=== PATIENT | female | born 1990 | race Caucasian/White ===

== ENCOUNTER 2018-04-04 17:26 | Emergency (ER) | payer OTHER ==
[~2018-04-04] VITALS: Ht 160 cm; Wt 127.0 kg
[2018-04-04] MEDS ORDERED: ALPRAZOLAM0.25 MG PO (18:16)
[2018-04-04] MEDS ORDERED: ONDANSETRON ODT8 MG PO (18:17)
[2018-04-04] MEDS ORDERED: VENTOLIN HFA18 GM INH (18:17)
[2018-04-04] MEDS ORDERED: FLAGYL500 MG PO (19:07)
[2018-04-04] MEDS ORDERED: PROMETHAZINE HC25 M1 PO (19:07)
== END 2018-04-04 19:38 | disposition home or self-care (01) ==
LOC: ED 17:26
DX: K52.9 Noninfective gastroenteritis and colitis, unspecified (principal); Z87.891 Personal history of nicotine dependence; Z79.899 Other long term (current) drug therapy
CPT/HCPCS: 80053; 81001; 85379; 96361; 96374; 99283; J2550; J7030

== ENCOUNTER 2020-05-18 14:54 | Emergency (ER) | payer OTHER ==
[~2020-05-18] VITALS: Ht 160 cm; Wt 127.0 kg
--- OUTSIDE RECORDS SUMMARY | ~2020-05-18 | XMS | Encounter Summary ---
Demographics + + + | Address | [address] | | | [place] [address] | + + + | Home Phone | | + + + | Preferred Language | Unknown | + + + | Marital Status | Single | + + + | Gnosticism Affiliation | 1027 | + + + | Race | Unknown | + + + | Ethnic Group | Unknown | + + + Author + + + | Author | [facility] | | | and [place] | + + + | Organization | [facility] | | | and [place] | + + + | Address | Unknown | + + + | Phone | Unavailable | + + + Care Team Providers + +------+ + | Care Cloth Laminating Supervisor Name | Role | Phone | + +------+ + PCP | Unavailable | + +------+ + Encounter Details +--------+ + + + + | Date | Type | Department | Care Team | Description | +--------+ + + + + | 06/24/ | Hospital | [facility] | Harmeet Lopez MD | | | 2009 | Encounter | CONVERSION [address] | [address] | | | | | [address] | [address] [place], | | | | | [place], [place] | [place] [address] | | | | | [address] | [phone] | | | | | [phone] | | | +--------+ + + + + Social History + +-------+ +--------+------+ | Tobacco Use | Types | Packs/Day | Years | Date | | | | | Used | | + +-------+ +--------+------+ | Never Assessed | | | | | + +-------+ +--------+------+ + + + | Sex Assigned at | Date Recorded | | | | + + + | Not on file | | + + + documented as of this encounter Plan of Treatment Not on filedocumented as of this encounter Visit Diagnoses Not on filedocumented in this encounter"
--- OUTSIDE RECORDS SUMMARY | ~2020-05-18 | XMS | Clinical Summary ---
Demographics + + + | Address | [address] | | | [place] [address] | + + + | Home Phone | | + + + | Preferred Language | Unknown | + + + | Marital Status | Single | + + + | Judaism Affiliation | 1027 | + + + | Race | Unknown | + + + | Ethnic Group | Unknown | + + + Author + + + | Author | [facility] | | | and [place] | + + + | Organization | [facility] | | | and [place] | + + + | Address | Unknown | + + + | Phone | Unavailable | + + + Care Team Providers + +------+ + | Care Laborer Driver Name | Role | Phone | + +------+ + PCP | Unavailable | + +------+ + Allergies Not on File Medications Not on file Active Problems Not on file Family History + + +------+ + | Medical History | Relation | Name | Comments | + + +------+ + | High cholesterol | Father | | | + + +------+ + | Hypertension | Father | | | + + +------+ + | Dementia | Maternal | | | | | Grandmoth | | | | | er | | | + + +------+ + | Diabetes, NIDDM | Maternal | | | | | Grandmoth | | | | | er | | | + + +------+ + | Hypertension | Maternal | | | | | Grandmoth | | | | | er | | | + + +------+ + | Cancer | Mother | | ovarian | + + +------+ + | Ovarian cancer | Other | | | + + +------+ + | Cancer | Paternal | | colon | | | Grandfath | | | | | er | | | + + +------+ + | Diabetes, NIDDM | Paternal | | | | | Grandfath | | | | | er | | | + + +------+ + | Hypertension | Paternal | | | | | Grandfath | | | | | er | | | + + +------+ + | Cancer | Paternal | | colon | | | Grandmoth | | | | | er | | | + + +------+ + + +------+ + + | Relation | Name | Status | Comments | + +------+ + + | Father | | Alive | | + +------+ + + | Father | | | | + +------+ + + | Maternal Grandfather | | | | + +------+ + + | Maternal Grandmother | | Alive | | + +------+ + + | Maternal Grandmother | | | | + +------+ + + | Mother | | Alive | | + +------+ + + | Mother | | | | + +------+ + + | Other | | | | + +------+ + + | Paternal Grandfather | | | | + +------+ + + | Paternal Grandfather | | | | + +------+ + + | Paternal Grandmother | | | | + +------+ + + | Paternal Grandmother | | | | + +------+ + + Social History + +-------+ +--------+------+ | Tobacco Use | Types | Packs/Day | Years | Date | | | | | Used | | + +-------+ +--------+------+ | Never Smoker | | | | | + +-------+ +--------+------+ + + + | Sex Assigned at | Date Recorded | | | | + + + | Not on file | | + + + Last Filed Vital Signs Not on file Plan of Treatment + + + + + | Health Maintenance | Due Date | Last | Comments | | | | Done | | + + + + + | Vaccine: | | | | | Dtap/Tdap/Td (1 - | 8 | | | | Tdap) | | | | + + + + + | Cervical Cancer | | 01/28/20 | | | Screening (Pap) | 9 | 13 | | + + + + + | Vaccine: Influenza | | | | | (#1) | 0 | | | + + + + + Results Not on filefrom Last 3 Months"
--- OUTSIDE RECORDS SUMMARY | ~2020-05-18 | XMS | Encounter Summary ---
Demographics + + + | Address | [address] | | | [place] [address] | + + + | Home Phone | | + + + | Preferred Language | Unknown | + + + | Marital Status | Single | + + + | Alevism Affiliation | 1027 | + + + | Race | Unknown | + + + | Ethnic Group | Unknown | + + + Author + + + | Author | [facility] | | | and [place] | + + + | Organization | [facility] | | | and [place] | + + + | Address | Unknown | + + + | Phone | Unavailable | + + + Care Team Providers + +------+ + | Care Molasses Feed Mixer Name | Role | Phone | + +------+ + PCP | Unavailable | + +------+ + Encounter Details +--------+ + + + + | Date | Type | Department | Care Team | Description | +--------+ + + + + | 07/28/ | Emergency | [facility] | Ajay Montaño DO | Abdominal pain, | | 2009 | | MEDICAL CENTER | [address] | unspecified site | | | | EMERGENCY CENTER | [address], | | | | | [address] | [place] [address] | | | | | [place], [place] | [phone] | | | | | [address] | | | | | | [phone] | | | +--------+ + + + [...] filedocumented as of this encounter Visit Diagnoses + + | Diagnosis | + + | Abdominal pain, unspecified site | + + documented in this encounter"
--- OUTSIDE RECORDS SUMMARY | ~2020-05-18 | XMS | Encounter Summary ---
Demographics + + + | Address | [address] | | | [place] [address] | + + + | Home Phone | | + + + | Preferred Language | Unknown | + + + | Marital Status | Single | + + + | Tenriism Affiliation | 1027 | + + + | Race | Unknown | + + + | Ethnic Group | Unknown | + + + Author + + + | Author | [facility] | | | and [place] | + + + | Organization | [facility] | | | and [place] | + + + | Address | Unknown | + + + | Phone | Unavailable | + + + Care Team Providers + +------+ + | Care Material Handler Name | Role | Phone | + +------+ + PCP | Unavailable | + +------+ + Encounter Details +--------+ + + + + | Date | Type | Department | Care Team | Description | +--------+ + + + + | 07/28/ | Orders Only | [facility] | Ajay Montaño DO | | | 2009 | | MEDICAL CENTER | [address] | | | | | EMERGENCY CENTER | [address] [place], | | | | | [address] | [place] [address] | | | | | [place], [place] | [phone] | | | | | [address] | | | | | | [phone] | | | +--------+ + + + [...] Not on filedocumented as of this encounter Procedures + +--------+ + + + | Procedure Name | Priori | Date/Time | Associated Diagnosis | Comments | | | ty | | | | + +--------+ + + + | CULTURE, URINE | Routin | 07/28/2010 | | Results for this | | | e | 8:45 AM | | procedure are in the | | | | PDT | | results section. | + +--------+ + + + documented in this encounter Results Culture, Urine (07/28/2010 8:45 AM PDT) + + | Specimen | + + | | + + + + + | Narrative | Performed At | + + + | Specimen Description CLEAN CATCH URINE CULTURE | EXTERNAL LAB | | >100,000 CFU/ML ESCHERICHIA | | | COLI 10,000 TO | | | 50,000 CFU/ML MIXED GRAM POSITIVE LAYA NO SUSCEPTIBILITY TO FOLLOW | | | REPORT STATUS 07/29/2010 FINAL | | | Organism ESCHERICHIA COLI | | | >100,000 CFU/ML ESCHERICHIA COLI O | | | MARIELA Ampicillin | | | SUSCEPTIBLESensitive Ampicillin + Sulbactam | | | SUSCEPTIBLESensitive Cefazolin | | | SUSCEPTIBLESensitive Ceftazidime | | | SUSCEPTIBLESensitive Ceftriaxone | | | SUSCEPTIBLESensitive Ciprofloxacin | | | SUSCEPTIBLESensitive Gentamicin | | | SUSCEPTIBLESensitive Piperacillin + Tazobactam | | | SUSCEPTIBLESensitive SXT | | | (Trimethoprim/Sulfamethoxazole)SUSCEPTIBLESensitive Nitrofurantoin | | | SUSCEPTIBLESensitive Levofloxacin | | | SUSCEPTIBLESensitive | | + + + + +---------+ + + | Performing | Address | City/State/Zipcode | Phone Number | | Organization | | | | + +---------+ + + | EXTERNAL LAB | | | | + +---------+ + + documented in this encounter Visit Diagnoses Not on filedocumented in this encounter"
--- OUTSIDE RECORDS SUMMARY | ~2020-05-18 | XMS | Encounter Summary ---
Demographics + + + | Address | [address] | | | [place] [address] | + + + | Home Phone | | + + + | Preferred Language | Unknown | + + + | Marital Status | Single | + + + | Zoroastrian Affiliation | 1027 | + + + | Race | Unknown | + + + | Ethnic Group | Unknown | + + + Author + + + | Author | [facility] | | | and [place] | + + + | Organization | [facility] | | | and [place] | + + + | Address | Unknown | + + + | Phone | Unavailable | + + + Care Team Providers + +------+ + | Care Instructor Tap Dancing Name | Role | Phone | + +------+ + PCP | Unavailable | + +------+ + Encounter Details +--------+ + + + + | Date | Type | Department | Care Team | Description | +--------+ + + + + | 01/15/ | Hospital | [facility] | Luiz Krueger | Mild or unspecified | | 2010 - | Encounter | MEDICAL CENTER LABOR | MD [address] | pre-eclampsia, with | | | | [address] | [address] | delivery | | 01/17/ | | [address] | [place] [address] | | | 2010 | | [place], [place] | [phone] | | | | | [address] | | | | | | [phone] | | | +--------+ + + + [...] + | Diagnosis | + + | Mild or unspecified pre-eclampsia, with delivery | + + documented in this encounter"
--- OUTSIDE RECORDS SUMMARY | ~2020-05-18 | XMS | Encounter Summary ---
Demographics + + + | Address | [address] | | | [place] [address] | + + + | Home Phone | | + + + | Preferred Language | Unknown | + + + | Marital Status | Single | + + + | Advent Affiliation | 1027 | + + + | Race | Unknown | + + + | Ethnic Group | Unknown | + + + Author + + + | Author | [facility] | | | and [place] | + + + | Organization | [facility] | | | and [place] | + + + | Address | Unknown | + + + | Phone | Unavailable | + + + Care Team Providers + +------+ + | Care Cheese Specialist Name | Role | Phone | + +------+ + PCP | Unavailable | + +------+ + Encounter Details +--------+ + + + + | Date | Type | Department | Care Team | Description | +--------+ + + + + | 12/16/ | Hospital | [facility] | Harmeet Lopez MD | Polyhydramnios, | | 2010 | Encounter | [address] | [address] | antepartum | | | | [address] | [address] [place], | complication | | | | [place], [place] | [place] [address] | | | | | [address] | [phone] | | | | | [phone] | | | +--------+ + + + [...] | + +--------+ + + + | US BIOPHYSICAL | Routin | 12/16/2010 | | Results for this | | PROFILE WO NON | e | 4:30 PM | | procedure are in the | | STRESS | | PST | | results section. | + +--------+ + + + documented in this encounter Results US BPP wo Non Stress (12/16/2010 4:30 PM PST) + + | Specimen | + + | | + + + + + | Narrative | Performed At | + + + | [facility] [address] Ph: | | | Patient Name: JOSE MARTIN CASTILLO Date of : | | | 1990 Medical Record: [id number] Account: [id number] | | | Exam Date/Time: 12/16/2010 16:34 Ordering | | | Physician: HARMEET LOPEZ MD Order Detail: [id number] Exam Description: | | | APW OB BPP W/O NST | | | | | | Indication: BPP. History: Age: 20 years. | | | : 1 Para: 0. Dating: Stated EDC : | | | EDC: 01/22/2011 | | | [place] by | | | stated EDC :34w5d Anatomy Scan: Beaver | | | gestation. heart activity: present. presentation: | | | cephalic. Cord: not examined. Placenta: anterior. Summary of | | | Ultrasound Findings: Transabdominal US. U/S machine: [employer] E8 - | | | [facility] [employer] [facility]. U/S view: adequate. | | | Wellbeing Assessment: Amniotic fluid: | | | normal. GABO: 10.7 cm. MVP: 5.9 cm. Q1: 3.1 cm. Q2: 5.9 cm. Q3: 1.7 | | | cm. Biophysical Profile: body movements: abnormal (0), | | | tone: normal (2), breathing movements: normal (2), Amniotic | | | fluid volume: normal (2). Score 6 / 8. Summary: A biophysical | | | profile is performed today with a score of 6/8, GBM was not seen. | | | Report Summary: Impression: A biophysical | | | profile is performed today with a score of 6/8. As demonstrated | | | on cine loop, GBM limited. Machine froze during exam and machine | | | had to be shut down and re-booted. This took 5 minutes and delayed | | | exam. The patient received thermal prints. Electronically | | | signed by Harmeet Lopez MD on 12/16/2010 17:07 | | + + + + + | Procedure Note | + + | Nicholas Gregory Conversion - 06/10/2019 2:53 PM PDT | | [facility] | | [facility] [address] | | | | | | Patient Name: JOSE MARTIN CASTILLO | | Date of : 1990 | | Medical Record: [id number] | | Account: [id number] | | | | | | Exam Date/Time: 12/16/2010 16:34 | | Ordering Physician: HARMEET LOPEZ MD | | Order Detail: [id number] | | Exam Description: APW OB BPP W/O NST | | | | Indication: BPP. | | | | History: Age: 20 years. : 1 Para: 0. | | | | Dating: | | Stated EDC : EDC: 01/22/2011 | | GA by stated EDC :34w5d | | | | Anatomy Scan: | | Beaver gestation. | | heart activity: present. | | presentation: cephalic. | | Cord: not examined. | | Placenta: anterior. | | | | Summary of Ultrasound Findings: | | Transabdominal US. U/S machine: [employer] E8 - [employer] | | for Women. U/S view: adequate. | | | | | | Wellbeing Assessment: | | Amniotic fluid: normal. GABO: 10.7 cm. MVP: 5.9 cm. Q1: 3.1 cm. Q2: | | 5.9 cm. Q3: 1.7 cm. | | Biophysical Profile: body movements: abnormal (0), tone: | | normal (2), breathing movements: normal (2), Amniotic fluid | | volume: normal (2). Score 6 / 8. | | | | Summary: A biophysical profile is performed today with a score of | | 6/8, GBM was not seen. | | | | | | Report Summary: | | Impression: A biophysical profile is performed today with a score of | | 6/8. | | | | As demonstrated on cine loop, GBM limited. | | | | Machine froze during exam and machine had to be shut down and | | re-booted. This took 5 minutes and delayed exam. | | | | The patient received thermal prints. | | | | | + + documented in this encounter Visit Diagnoses + + | Diagnosis | + + | Polyhydramnios, antepartum complication | + + documented in this encounter"
--- OUTSIDE RECORDS SUMMARY | ~2020-05-18 | XMS | Encounter Summary ---
Demographics + + + | Address | [address] | | | [place] [address] | + + + | Home Phone [...] [facility] | | | and [place] | + + + | Organization | [facility] | | | and [place] | + + + | Address | Unknown | + + + | Phone | Unavailable | + + + Care Team Providers + +------+ + | Care Supervisor Of Guidance And Testing Name | Role | Phone | + +------+ + PCP | Unavailable | + +------+ + Encounter Details +--------+ + + + + | Date | Type | Department | Care Team | Description | +--------+ + + + + | 01/05/ | Hospital | [facility] | Fabrizio, Tosha | Decreased | | 2010 | Encounter | MEDICAL CENTER LABOR | Eva HEWITT MD [address] | movements, affecting | | | | [address] | [address] | management of | | | | [address] | [place] [address] | mother, antepartum | | | | [place], [place] | [phone] | | | | | [address] | | | | | | [phone] | | | +--------+ + + + [...] + | US BIOPHYSICAL | Routin | 01/05/2011 | | Results for this | | PROFILE WO NON | e | 9:28 PM | | procedure are in the | | STRESS | | PDT | | results section. | + +--------+ + + + documented in this encounter Results US BPP wo Non Stress (01/05/2011 9:28 PM PDT) + + | Specimen | + + | | + + + + + | Narrative | Performed At | + + + | [facility] [address] Ph: | | | Patient Name: JOSE MARTIN CASTILLO Date of : | | | 1990 Medical Record: [id number] Account: [id number] | | | Exam Date/Time: 01/05/2011 19:31 Ordering | | | Physician: TOSHA RICH Order Detail: [id number] Exam | | | Description: US BPP W/O NST | | | | | | JOSE MARTIN CASTILLO US BPP W/O NST 01/05/2011 7:31 PM HISTORY: 20 | | | years. Female. Diminished movement TECHNIQUE: Imaging | | | was performed using a curved array transabdominal transducer. | | | Grayscale, color flow and M-mode techniques were utilized. | | | COMPARISON: None. FINDINGS: The position: Cephalic. | | | Placental position: Anterior. Placenta previa: No. Amniotic fluid | | | index: 10.7 cm. BIOPHYSICAL PROFILE: Movement = 0 Tone = 2 | | | Breathing = 2 AFV = 2 Biophysical Profile Score = 6/8 | | | heart rate = 145 beats/min IMPRESSION: 1. Biophysical Profile | | | Score = 6/8 2. heart rate = 145 beats/min 3. Amniotic | | | fluid index: 10.7 cm. | | + + + + + | Procedure Note | + + | Colt, Rad Conversion - 06/10/2019 2:53 PM PDT | | [facility] | | [facility] [address] | | | | | | Patient Name: JOSE MARTIN CASTILLO | | Date of : 1990 | | Medical Record: [id number] | | Account: [id number] | | | | | | Exam Date/Time: 01/05/2011 19:31 | | Ordering Physician: TOSHA RICH | | Order Detail: [id number] | | Exam Description: US BPP W/O NST | | | | JOSE MARTIN CASTILLO | | US BPP W/O NST | | 01/05/2011 7:31 PM | | | | HISTORY: | | 20 years. Female. Diminished movement | | | | TECHNIQUE: | | Imaging was performed using a curved array transabdominal transducer. | | Grayscale, color flow and M-mode techniques were utilized. | | | | COMPARISON: | | None. | | | | FINDINGS: | | The position: Cephalic. | | Placental position: Anterior. | | Placenta previa: No. | | | | Amniotic fluid index: 10.7 cm. | | | | BIOPHYSICAL PROFILE: | | Movement = 0 | | Tone = 2 | | Breathing = 2 | | AFV = 2 | | Biophysical Profile Score = 6/8 | | | | heart rate = 145 beats/min | | | | IMPRESSION: | | 1. Biophysical Profile Score = 6/8 | | 2. heart rate = 145 beats/min | | 3. Amniotic fluid index: 10.7 cm. | | | | | + + documented in this encounter Visit Diagnoses + + | Diagnosis | + + | Decreased movements, affecting management of mother, antepartum | + + documented in this encounter"
--- OUTSIDE RECORDS SUMMARY | ~2020-05-18 | XMS | Encounter Summary ---
Demographics + + + | Address | [address] | | | [place] [address] | + + + | Home Phone | | + + + | Preferred Language | Unknown | + + + | Marital Status | Single | + + + | Uatsdin Affiliation | 1027 | + + + | Race | Unknown | + + + | Ethnic Group | Unknown | + + + Author + + + | Author | [facility] | | | and [place] | + + + | Organization | [facility] | | | and [place] | + + + | Address | Unknown | + + + | Phone | Unavailable | + + + Care Team Providers + +------+ + | Care Skill Training Program Coordinator Name | Role | Phone | + +------+ + PCP | Unavailable | + +------+ + Encounter Details +--------+ + + + + | Date | Type | Department | Care Team | Description | +--------+ + + + + | 07/28/ | Orders Only | [facility] | Ajay Montaño DO | | | 2009 | | MEDICAL CENTER | [address] | | | | | EMERGENCY CENTER | [address] [place], | | | | | [address] | [place] [address] | | | | | [place], [place] | [phone] | | | | | [address] | | | | | | [phone] | | | +--------+ + + + [...] | + +--------+ + + + | MIMI FLYNN | STAT | 07/28/2010 | | Results for this | | | | 8:49 AM | | procedure are in the | | | | PDT | | results section. | + +--------+ + + + documented in this encounter Results Wet [place], Genital (07/28/2010 8:49 AM PDT) + + | Specimen | + + | | + + + + + | Narrative | Performed At | + + + | Specimen Description VAGINAL SPECIMEN | EXTERNAL LAB | | Testing performed at | | | [address];[place] [address] Bacteria, Wet Prep | | | NO YEAST OR TRICHOMONAS SEEN | | | Testing performed at [address] | | | [facility];[place] [address] REPORT STATUS | | | 07/28/2010 FINAL | | + + + + +---------+ + + | Performing | Address | City/State/Zipcode | Phone Number | | Organization | | | | + +---------+ + + | EXTERNAL LAB | | | | + +---------+ + + documented in this encounter Visit Diagnoses Not on filedocumented in this encounter"
--- OUTSIDE RECORDS SUMMARY | ~2020-05-18 | XMS | Encounter Summary ---
Demographics + + + | Address | [address] | | | [place] [address] | + + + | Home Phone | | + + + | Preferred Language | Unknown | + + + | Marital Status | Single | + + + | Scientologist Affiliation | 1027 | + + + | Race | Unknown | + + + | Ethnic Group | Unknown | + + + Author + + + | Author | [facility] | | | and [place] | + + + | Organization | [facility] | | | and [place] | + + + | Address | Unknown | + + + | Phone | Unavailable | + + + Care Team Providers + +------+ + | Care Night Warehouse Manager Name | Role | Phone | + +------+ + PCP | Unavailable | + +------+ + Encounter Details +--------+ + + + + | Date | Type | Department | Care Team | Description | +--------+ + + + + | 10/30/ | Hospital | [facility] | Alexa Garcia | Excessive | | 2010 | Encounter | [address] | [address] | growth affecting | | | | [address] | [place], [place] | management of | | | | [place], [place] | [address] | mother, antepartum | | | | [address] | | | | | | [phone] | | | +--------+ + + + [...] + +--------+ + + + | US OB LIMITED 1 OR | Routin | 10/30/2010 | | Results for this | | MORE FETUS | e | 8:33 AM | | procedure are in the | | | | PST | | results section. | + +--------+ + + + documented in this encounter Results US OB Limited 1 or More Fetus (10/30/2010 8:33 AM PST) + + | Specimen | + + | | + + + + + | Narrative | Performed At | + + + | See medical record for report. This is a converted record that was | | | non-reportable in [email or web address] system. | | + + + + + | Procedure Note | + + | Nicholas Gregory Conversion - 06/10/2019 2:53 PM PDT See medical record for report. This is | | a converted record that was non-reportable in [employer] system. | + + documented in this encounter Visit Diagnoses + + | Diagnosis | + + | Excessive growth affecting management of mother, antepartum | + + documented in this encounter"
--- OUTSIDE RECORDS SUMMARY | ~2020-05-18 | XMS | Encounter Summary ---
Demographics + + + | Address | [address] | | | [place] [address] | + + + | Home Phone | | + + + | Preferred Language | Unknown | + + + | Marital Status | Single | + + + | Alevism Affiliation | 1027 | + + + | Race | Unknown | + + + | Ethnic Group | Unknown | + + + Author + + + | Author | [facility] | | | and [place] | + + + | Organization | [facility] | | | and [place] | + + + | Address | Unknown | + + + | Phone | Unavailable | + + + Care Team Providers + +------+ + | Care Metal Tube Cutter Name | Role | Phone | + +------+ + PCP | Unavailable | + +------+ + Encounter Details +--------+ + + + + | Date | Type | Department | Care Team | Description | +--------+ + + + + | 08/16/ | Emergency | [facility] | Charles Cedeño | Injury, Other and | | 2009 - | | [facility] [place] | DO Chula Morrison | Unspecified, Knee, | | | | [facility] | DELIA RYDER | Leg, Ankle, and Foot | | 08/17/ | | [address] | [place] [address] | | | 2009 | | [place], [place] | [phone] | | | | | [address] | | | | | | [phone] | | | +--------+ + + + [...] | + +--------+ + + + | XR ANKLE LEFT 1 VW | Routin | 08/17/2010 | | Results for this | | LIMITED | e | 12:29 AM | | procedure are in the | | | | PDT | | results section. | + +--------+ + + + documented in this encounter Results XR Ankle Left 1 Vw Limited (08/17/2010 12:29 AM PDT) + + | Specimen | + + | | + + + + + | Narrative | Performed At | + + + | [facility] [address] Ph: | | | Patient Name: JOSE MARTIN CASTILLO Date of : | | | 1990 Medical Record: [id number] Account: [id number] | | | Exam Date/Time: 08/17/2010 00:05 Ordering | | | Physician: CHARELS Adams Detail: [id number] Exam Description: | | | XR ANKLE LIMITED LEFT | | | | | | HISTORY: Trauma TECHNIQUE: Two views are obtained. | | | COMPARISON: None. FINDINGS: The regional osseous structures | | | demonstrate normal mineralization and trabeculation. No fracture, | | | dislocation or subluxation is noted. The joint spaces appear normal. | | | No soft tissue swelling is seen. No radiopaque foreign bodies are | | | noted. No soft tissue calcifications are present. What appears a | | | rather prominent tarsal navicular with possible os naviculare, not | | | well seen. No obvious fracture-dislocation seen IMPRESSION: 1. | | | Possible os naviculare. Additional imaging would be required to | | | fully evaluate the tarsal hindfoot. The ankle mortise appears intact | | | on the two views submitted. | | + + + + + | Procedure Note | + + | Nicholas Gregory Conversion - 06/11/2019 7:18 PM PDT | | [facility] | | [facility] [address] | | | | | | Patient Name: JOSE MARTIN CASTILLO | | Date of : 1990 | | Medical Record: [id number] | | Account: [id number] | | | | | | Exam Date/Time: 08/17/2010 00:05 | | Ordering Physician: CHARLES CEDEÑO | | Order Detail: [id number] | | Exam Description: XR ANKLE LIMITED LEFT | | | | HISTORY: | | Trauma | | | | TECHNIQUE: | | Two views are obtained. | | | | COMPARISON: | | None. | | | | FINDINGS: | | The regional osseous structures demonstrate normal mineralization and | | trabeculation. | | No fracture, dislocation or subluxation is noted. | | The joint spaces appear normal. | | No soft tissue swelling is seen. | | No radiopaque foreign bodies are noted. | | No soft tissue calcifications are present. | | | | What appears a rather prominent tarsal navicular with possible os | | naviculare, not well seen. No obvious fracture-dislocation seen | | | | IMPRESSION: | | 1. Possible os naviculare. Additional imaging would be required to | | fully evaluate the tarsal hindfoot. The ankle mortise appears intact on the | | two views submitted. | | | | | + + documented in this encounter Visit Diagnoses + + | Diagnosis | + + | Injury, other and unspecified, knee, leg, ankle, and foot | + + documented in this encounter"
--- OUTSIDE RECORDS SUMMARY | ~2020-05-18 | XMS | Encounter Summary ---
Demographics + + + | Address | [address] | | | [place] [address] | + + + | Home Phone | | + + + | Preferred Language | Unknown | + + + | Marital Status | Single | + + + | Oriental Orthodox Affiliation | 1027 | + + + | Race | Unknown | + + + | Ethnic Group | Unknown | + + + Author + + + | Author | [facility] | | | and [place] | + + + | Organization | [facility] | | | and [place] | + + + | Address | Unknown | + + + | Phone | Unavailable | + + + Care Team Providers + +------+ + | Care Emergency Services Dispatcher Name | Role | Phone | + +------+ + PCP | Unavailable | + +------+ + Encounter Details +--------+ + + + + | Date | Type | Department | Care Team | Description | +--------+ + + + + | 01/22/ | Hospital | [facility] | Fabrizio, Mert | Routine | | 2010 | Encounter | CONVERSION [address] | Eva HEWITT MD [address] | follow-up | | | | [address] | [address] | | | | | [place], [place] | [place] [address] | | | | | [address] | [phone] | | | | | [phone] | | | +--------+ + + + [...] + | Diagnosis | + + | Routine follow-up | + + documented in this encounter"
--- OUTSIDE RECORDS SUMMARY | ~2020-05-18 | XMS | Encounter Summary ---
Demographics + + + | Address | [address] | | | [place] [address] | + + + | Home Phone | | + + + | Preferred Language | Unknown | + + + | Marital Status | Single | + + + | Mandaen Affiliation | 1027 | + + + | Race | Unknown | + + + | Ethnic Group | Unknown | + + + Author + + + | Author | [facility] | | | and [place] | + + + | Organization | [facility] | | | and [place] | + + + | Address | Unknown | + + + | Phone | Unavailable | + + + Care Team Providers + +------+ + | Care Barrel Cap Setter Name | Role | Phone | + +------+ + PCP | Unavailable | + +------+ + Encounter Details +--------+ + + + + | Date | Type | Department | Care Team | Description | +--------+ + + + + | 02/24/ | Hospital | C GENERIC OP | Mikey Mann, | Excessive | | 2010 | Encounter | [address]VERSION [address] | MD [address] | menstruation | | | | [address] | [address] [place], | | | | | [place], [place] | [place] [address] | | | | | [address] | [phone] | | | | | [phone] | | | +--------+ + + + [...] + +--------+ + + + | US NON-OB | Routin | 02/24/2011 | | Results for this | | TRANSVAGINAL | e | 12:02 PM | | procedure are in the | | | | PDT | | results section. | + +--------+ + + + documented in this encounter Results US Non-Ob Transvaginal (02/24/2011 12:02 PM PDT) + + | Specimen | + + | | + + + + + | Narrative | Performed At | + + + | [facility] [address] Ph: | | | Patient Name: JOSE MARTIN CASTILLO Date of : | | | 1990 Medical Record: [id number] Account: [id number] | | | Exam Date/Time: 02/24/2011 11:57 Ordering | | | Physician: MIKEY MANN MD Order Detail: 1950 Exam Description: | | | APW US ENDOVAGINAL | | | | | | Indication: Evaluate for possible RPOC. | | | Gynecological Ultrasonography: Uterus: Normal, anteverted. Size: | | | Longitudinal 98 mm. Anterio- posterior 44 mm. Transverse 71 mm. | | | Volume: 160.3 ml. Endometrium: endometrium clearly visualized. The | | | endometrium appears normal. Endometrial cavity: shows normal | | | appearences. Endometrium thickness total: 4.6 mm. Right Ovary: | | | normal. Visible. Outline: smooth. Morphology: normal morphology. | | | Right Ovary size: 28 mm x 24 mm x 19 mm. Volume: 6.7 ml. Left Ovary: | | | normal. Visible. Outline: smooth. Morphology: normal morphology. | | | Left Ovary size: 37 mm x 28 mm x 20 mm. Volume: 10.8 ml. Cul de Sac / | | | Pouch of Huy: No free fluid visible. Method: transvaginal | | | ultrasound, color Doppler, 2 D. Ultrasound machine: [employer] E8 - | | | [facility] [employer] [facility], view: good. | | | Report Summary: Overall impression: The | | | uterus, ovaries and adnexas were evaluated and appear within normal | | | limits. Unremarkable pelvic ultrasound. No evidence of reatined | | | POC. Recommendations / therapy: Antibiotic. | | + + + + + | Procedure Note | + + | Nicholas Gregory - 06/10/2019 2:53 PM PDT | | [facility] | | [facility] [address] | | | | | | Patient Name: JOSE MARTIN CASTILLO | | Date of : 1990 | | Medical Record: [id number] | | Account: [id number] | | | | | | Exam Date/Time: 02/24/2011 11:57 | | Ordering Physician: MIKEY MANN MD | | Order Detail: 1951 | | Exam Description: APW US ENDOVAGINAL | | | | Indication: | | Evaluate for possible RPOC. | | | | Gynecological Ultrasonography: | | Uterus: Normal, anteverted. | | Size: Longitudinal 98 mm. Anterio- posterior 44 mm. Transverse 71 mm. | | Volume: 160.3 ml. | | Endometrium: endometrium clearly visualized. The endometrium appears | | normal. Endometrial cavity: shows normal appearences. | | Endometrium thickness total: 4.6 mm. | | | | Right Ovary: normal. Visible. Outline: smooth. Morphology: normal | | morphology. | | Right Ovary size: 28 mm x 24 mm x 19 mm. Volume: 6.7 ml. | | Left Ovary: normal. Visible. Outline: smooth. Morphology: normal | | morphology. | | Left Ovary size: 37 mm x 28 mm x 20 mm. Volume: 10.8 ml. | | Cul de Sac / Pouch of Huy: No free fluid visible. | | | | Method: transvaginal ultrasound, color Doppler, 2 D. | | Ultrasound machine: [employer] E8 - [facility] [facility], | | view: good. | | | | Report Summary: | | Overall impression: The uterus, ovaries and adnexas were evaluated | | and appear within normal limits. Unremarkable pelvic ultrasound. No | | evidence of reatined POC. | | Recommendations / therapy: Antibiotic. | | | | | + + documented in this encounter Visit Diagnoses + + | Diagnosis | + + | Excessive menstruation Excessive or frequent menstruation | + + documented in this encounter"
--- OUTSIDE RECORDS SUMMARY | ~2020-05-18 | XMS | Encounter Summary ---
Demographics + + + | Address | [address] | | | [place] [address] | + + + | Home Phone | | + + + | Preferred Language | Unknown | + + + | Marital Status | Single | + + + | Temple Affiliation | 1027 | + + + | Race | Unknown | + + + | Ethnic Group | Unknown | + + + Author + + + | Author | [facility] | | | and [place] | + + + | Organization | [facility] | | | and [place] | + + + | Address | Unknown | + + + | Phone | Unavailable | + + + Care Team Providers + +------+ + | Care Feller Machine Operator Name | Role | Phone | + +------+ + PCP | Unavailable | + +------+ + Encounter Details +--------+ + + + + | Date | Type | Department | Care Team | Description | +--------+ + + + + | 06/24/ | Orders Only | [facility] | Harmeet Lopez MD | | | 2009 | | [address] | [address] | | | | | [place] | [address] [place], | | | | | [address] | [place] [address] | | | | | [phone] | | | | | | | | +--------+ + + + [...] + | CULTURE, URINE | Routin | 06/24/2010 | | Results for this | | | e | 3:50 PM | | procedure are in the | | | | PDT | | results section. | + +--------+ + + + documented in this encounter Results Culture, Urine (06/24/2010 3:50 PM PDT) + + | Specimen | + + | | + + + + + | Narrative | Performed At | + + + | Specimen Description URINE, COLLECTION NOT | EXTERNAL LAB | | GIVEN Testing | | | performed at [facility];[address] [place] [address];[place] [address] CULTURE | | | NO GROWTH 2 DAYS | | | Testing performed at | | | [facility];[address] [place] [address];[place] [address] REPORT STATUS | | | 06/27/2010 FINAL | | + + + + +---------+ + + | Performing | Address | City/State/Zipcode | Phone Number | | Organization | | | | + +---------+ + + | EXTERNAL LAB | | | | + +---------+ + + documented in this encounter Visit Diagnoses Not on filedocumented in this encounter"
--- OUTSIDE RECORDS SUMMARY | ~2020-05-18 | XMS | Encounter Summary ---
Demographics + + + | Address | [address] | | | [place] [address] | + + + | Home Phone | | + + + | Preferred Language | Unknown | + + + | Marital Status | Single | + + + | Nondenominational Affiliation | 1027 | + + + | Race | Unknown | + + + | Ethnic Group | Unknown | + + + Author + + + | Author | [facility] | | | and [place] | + + + | Organization | [facility] | | | and [place] | + + + | Address | Unknown | + + + | Phone | Unavailable | + + + Care Team Providers + +------+ + | Care Reiki Practitioner Name | Role | Phone | + +------+ + PCP | Unavailable | + +------+ + Encounter Details +--------+ + + + + | Date | Type | Department | Care Team | Description | +--------+ + + + + | 09/10/ | Hospital | C GENERIC OP | Sulaiman Garza, | | | 2009 | Encounter | [address] | PA-C [address] | | | | | [address] | [address] | | | | | [place], [place] | [place] [address] | | | | | [address] | [phone] | | | | | [phone] | | | +--------+ + + + [...] +--------+ + + + | US OB 14 + WEEKS | Routin | 09/10/2010 | | Results for this | | SINGLE OR FIRST | e | 3:43 PM | | procedure are in the | | GESTATION | | PST | | results section. | + +--------+ + + + documented in this encounter Results US OB 14 + Week Singl or First Gestation (09/10/2010 3:43 PM PST) + + | Specimen | + + | | + + + + + | Narrative | Performed At | + + + | See medical record for report. This is a converted record that was | | | non-reportable in legacy system. | | + + + + + | Procedure Note | + + | Nicholas Gregory Conversion - 06/11/2019 7:18 PM PDT See medical record for report. This is | | a converted record that was non-reportable in [employer] system. | + + documented in this encounter Visit Diagnoses Not on filedocumented in this encounter"
--- OUTSIDE RECORDS SUMMARY | ~2020-05-18 | XMS | Encounter Summary ---
Demographics + + + | Address | [address] | | | [place] [address] | + + + | Home Phone [...] Author + + + | Author | [facility] | | | and [place] | + + + | Organization | [facility] | | | and [place] | + + + | Address | Unknown | + + + | Phone | Unavailable | + + + Care Team Providers + +------+ + | Care Computerized Mill Mill Recorder Name | Role | Phone | + +------+ + PCP | Unavailable | + +------+ + Encounter Details +--------+ + + + + | Date | Type | Department | Care Team | Description | +--------+ + + + + | 06/26/ | Hospital | C GENERIC OP | Sulaiman Garza, | | | 2009 | Encounter | [address] | PA-C [address] | | | | | [address] | [address] | | | | | [place], [place] | [place] [address] | | | | | [address] | [phone] | | | | | [phone] | | | +--------+ + + + [...] +--------+ + + + | US OB < 14 WEEKS | Routin | 06/26/2010 | | Results for this | | SINGLE OR FIRST | e | 3:27 PM | | procedure are in the | | GESTATION | | PDT | | results section. | + +--------+ + + + documented in this encounter Results US OB < 14 Weeks Singl or First Gestatio (06/26/2010 3:27 PM PDT) + + | Specimen | [...] a converted record that was non-reportable in [employer] system. | + + documented in this encounter Visit Diagnoses Not on filedocumented in this encounter"
--- OUTSIDE RECORDS SUMMARY | ~2020-05-18 | XMS | Encounter Summary ---
Demographics + + + | Address | [address] | | | [place] [address] | + + + | Home Phone | | + + + | Preferred Language | Unknown | + + + | Marital Status | Single | + + + | Latter Day Affiliation | 1027 | + + + | Race | Unknown | + + + | Ethnic Group | Unknown | + + + Author + + + | Author | [facility] | | | and [place] | + + + | Organization | [facility] | | | and [place] | + + + | Address | Unknown | + + + | Phone | Unavailable | + + + Care Team Providers + +------+ + | Care Ammunition Supervisor Name | Role | Phone | + +------+ + PCP | Unavailable | + +------+ + Encounter Details +--------+ + + + + | Date | Type | Department | Care Team | Description | +--------+ + + + + | 12/24/ | Orders Only | [facility] | Harmeet Lopez MD | | | 2010 | | [address] | [address] | | | | | [place] [address] | [address] [place], | | | | | [address] | [place] [address] | | | | | [phone] | | | | | | | [...] | + +--------+ + + + | STREP B SCREEN | Routin | 12/24/2010 | | Results for this | | | e | 12:06 PM | | procedure are in the | | | | PST | | results section. | + +--------+ + + + documented in this encounter Results Strep B screen (12/24/2010 12:06 PM PST) + + | Specimen | + + | | + + + + + | Narrative | Performed At | + + + | Specimen Description VAGINAL/RECTAL SWAB | EXTERNAL LAB | | Testing performed at | | | [facility] [place] [address] CULTURE | | | NO GROUP B STREP ISOLATED | | | Testing performed at [facility] [address] | | | [facility];[place] [address] REPORT STATUS | | | 12/27/2010 FINAL | | + + + + +---------+ + + | Performing | Address | City/State/Zipcode | Phone Number | | Organization | | | | + +---------+ + + | EXTERNAL LAB | | | | + +---------+ + + documented in this encounter Visit Diagnoses Not on filedocumented in this encounter"
[~2020-05-18 14:54] MED LIST: ALPRAZOLAM0.25 MG PO; FLAGYL500 MG PO; ONDANSETRON ODT8 MG PO; PROMETHAZINE HC25 M1 PO; VENTOLIN HFA18 GM INH
--- NOTE | 2020-05-19 14:13 | EKG ---
[facility] [address] [facility] [place], [place] [address] Signed Normal sinus rhythm Normal ECG No previous ECGs available Confirmed by ALESSIA GUEVARA DO ([id number]) on 05/19/2020 2:13:01 PM Electronically Signed By: ALESSIA GUEVARA DO 05/19/20 1413 PATIENT NAME: JOSE MARTIN CASTILLO Electrocardiogram DATE OF : [birth year] PHYSICIAN: ALESSIA GUEVARA DO REPORT #: [id number] REPORT IS CONFIDENTIAL AND NOT TO BE RELEASED WITHOUT AUTHORIZATION
== END 2020-05-18 17:14 | disposition home or self-care (01) ==
LOC: ED 14:54
DX: R07.9 Chest pain, unspecified (principal)
CPT/HCPCS: 71045; 80053; 83735; 84484; 85025; 93005; 93010; 99285-25

== ENCOUNTER 2020-09-23 10:34 | Emergency (ER) | payer OTHER ==
[~2020-09-23] VITALS: Ht 160 cm; Wt 127.0 kg
[2020-09-23] MEDS ORDERED: CYCLOBENZAPRINE10 MG PO (10:52)
[2020-09-23] MEDS ORDERED: NORCO 5-325 TA1 EACH PO (11:21)
== END 2020-09-23 11:26 | disposition home or self-care (01) ==
LOC: ED 10:34
DX: S39.012A Strain of muscle, fascia and tendon of lower back, initial encounter (principal); X58.XXXA Exposure to other specified factors, initial encounter; Z87.891 Personal history of nicotine dependence
CPT/HCPCS: 99283

== ENCOUNTER 2022-07-17 14:14 | Emergency (ER) | payer OTHER ==
[~2022-07-17] VITALS: Ht 160 cm; Wt 132.9 kg
[~2022-07-17 14:14] MED LIST changes: +CYCLOBENZAPRINE10 MG PO; +NORCO 5-325 TA1 EACH PO
--- NOTE | 2022-07-18 14:29 | EKG ---
[facility] [address] [facility] [place] [address] Signed Normal sinus rhythm Rightward axis Borderline ECG When compared with ECG of 18-MAY-2020 15:00, No significant change was found Confirmed by LORENZO VERAS MD ([id number]) on 07/18/2022 2:29:19 PM Electronically Signed By: LORENZO VERAS MD 07/18/22 1429 PATIENT NAME: ALESSIA CASTILLONA GRACE Electrocardiogram DATE OF : [birth year] PHYSICIAN: LORENZO VERAS MD REPORT #: [id number] REPORT IS CONFIDENTIAL AND NOT TO BE RELEASED WITHOUT AUTHORIZATION
== END 2022-07-17 16:07 | disposition left against medical advice (07) ==
LOC: ED 14:14
DX: R07.2 Precordial pain (principal); Z53.21 Procedure and treatment not carried out due to patient leaving prior to being seen by health care provider
CPT/HCPCS: 93005; 93010